=== PATIENT | female | born 1985 | race Caucasian/White ===

== ENCOUNTER → 2018-05-25 17:10 | Outpatient (CLI) | payer MEDICAID, SELFPAY ==
[2018-05-25 19:39] LABS: Chlamydia Trachomatis by PCR Negative (Negative); Neisserai gonorrhoeae by PCR Negative (Negative); Probe Check PASS; Sample Adequacy Control PASS; Specimen Processing Control PASS
== END ==
PROVIDERS: Visit Provider Nurse Practitioner Women's Health
DX: N89.8 Other specified noninflammatory disorders of vagina (principal)
CPT/HCPCS: 87070; 87077; 87205; 87491; 87591

== ENCOUNTER → 2018-06-06 15:57 | Outpatient (CLI) | payer MEDICAID, SELFPAY | PROVIDERS: Family Provider Family Medicine; PCP Family Medicine; Referring Provider Obstetrics & Gynecology; Visit Provider Obstetrics & Gynecology | DX: N76.0 Acute vaginitis (principal) | CPT/HCPCS: 87070; 87205 ==

== ENCOUNTER → 2019-08-08 12:25 | Outpatient (CLI) | payer SELFPAY ==
[2019-02-06 08:21] VITALS: BMI 31.4
[2019-08-08 14:32] LABS: Amphetamine Urine VISTA NEGATIVE (<1000 ng/mL); Barbiturate Urine VISTA NEGATIVE (< 200 ng/mL); Benzodiazepine Urine VISTA NEGATIVE (< 200 ng/mL); Cocaine Urine VISTA NEGATIVE (< 300 ng/mL); Ecstacy Urine VISTA NEGATIVE (< 500 ng/mL); Methadone Urine VISTA NEGATIVE (< 300 ng/mL); PCP Urine VISTA NEGATIVE (< 25 ng/mL); THC Urine VISTA NEGATIVE (< 50 ng/mL); Vista UDS pH Range 6
[2019-08-08 14:59] LABS: Rubella IgG 34.6 IU/mL
[2019-08-12 20:14] LABS: Mumps Antibody, IgM < 0.80 AU (0.00-0.79); Rubeola IgG Ab 53.7 AU/mL (Immune >16.4); V-Zoster Virus Acute IgM < 0.91 index (0.00-0.90)
== END ==
PROVIDERS: Family Provider Family Medicine; PCP Family Medicine; Referring Provider Family Medicine; Visit Provider Family Medicine
DX: Z00.00 Encounter for general adult medical examination without abnormal findings (principal)
CPT/HCPCS: 36415; 80307; 86735; 86762; 86765; 86787

== ENCOUNTER → 2019-10-24 | Outpatient (CLI) | payer MEDICAID, SELFPAY ==
[2019-10-24 14:07] VITALS: BMI 31.4
[2019-10-24 23:04] LABS: Chlamydia Trachomatis by PCR Negative (Negative); Neisserai gonorrhoeae by PCR Negative (Negative); Probe Check PASS; Sample Adequacy Control PASS; Specimen Processing Control PASS
== END | disposition home or self-care (01) ==
LOC: LABSPEC 16:14
PROVIDERS: PCP Family Medicine; Referring Provider Nurse Practitioner Women's Health; Visit Provider Nurse Practitioner Women's Health
DX: N89.8 Other specified noninflammatory disorders of vagina (principal)
CPT/HCPCS: 87070; 87205; 87491; 87591

== ENCOUNTER → 2020-02-26 | Outpatient (CLI) | payer MEDICAID, SELFPAY ==
[2020-02-26 09:33] VITALS: BMI 31.4
[2020-03-04 15:23] LABS: HPV APTIMA, High Risk Negative (Negative)
== END | disposition home or self-care (01) ==
LOC: LABSPEC 15:37
PROVIDERS: PCP Family Medicine; Referring Provider Nurse Practitioner Women's Health; Visit Provider Nurse Practitioner Women's Health
DX: Z12.4 Encounter for screening for malignant neoplasm of cervix (principal)
CPT/HCPCS: 87624; 88175; G0145

== ENCOUNTER → 2021-03-31 08:43 | Outpatient (CLI) | payer OTHER, MEDICAID, SELFPAY ==
[2021-03-31 08:12] VITALS: BMI 31.4
[2021-03-31 11:04] LABS: HIV - WCH Non-Reactive (Nonreactive); Hepatitis C Antibody Non-Reactive (Nonreactive); Syphilis Antibodies Non-reactive
[2021-04-01 12:33] LABS: HSV 1 IgG < 0.91 index (0.00-0.90); HSV 2 IgG < 0.91 index (0.00-0.90)
[2021-04-02 20:08] LABS: Chlamydia By Nucleic Acid AMP Negative (Negative)
[2021-04-02 20:21] LABS: Gonococcus By Nucleic Acid AMP Negative (Negative)
== END ==
PROVIDERS: PCP Family Medicine; Referring Provider Nurse Practitioner Women's Health; Visit Provider Nurse Practitioner Women's Health
DX: Z11.3 Encounter for screening for infections with a predominantly sexual mode of transmission (principal); Z20.2 Contact with and (suspected) exposure to infections with a predominantly sexual mode of transmission
CPT/HCPCS: 36415; 86695; 86696; 86703; 86780; 86803; 87491; 87591

== ENCOUNTER 2021-11-26 06:08 | Outpatient (CLI) | payer OTHER, MEDICAID, SELFPAY ==
[2021-11-26 07:28] LABS: Absolute Lymphocyte Count 2.32 X10^3/uL (0.83-4.51); Absolute Neutrophil Count 4.4 X10^3/uL (2.0-7.7); Basophil# 0.04 X10^3/uL; Basophil% 0.5 % (0-1); Eosinophil# 0.14 X10^3/uL; Eosinophils% 1.9 % (0-5); Hematocrit 42.4 % (37-47); Hemoglobin 14.8 g/dL (12.0-15.0); Lymphocyte # 2.32 X10^3/ul (0.83-4.51); Lymphocyte % 31.1 % (19-41); Mean Corp Hgb Conc 34.9 g/dL (32-36); Mean Corpuscular Hgb 32.2 pg (27.0-32.0); Mean Corpuscular Volume 92.2 fL (81-99); Mean Platelet Vol. 10.7 fl (6.2-12.0); Monocyte# 0.48 X10^3/uL; Monocyte% 6.4 % (0-10); NRBC Flagged by Analyzer 0 % (0-5); Neutrophil # 4.44 X10^3/uL (2.7-7.7); Neutrophil % 59.7 % (47-70); Platelet Count 259 K/mm3 (150-450); RBC Distribution Width CV 12.6 % (11.6-14.6); RBC Distribution Width SD 43.2 fl (35.1-43.9); White Blood Count 7.5 K/mm3 (4.4-11.0)
[2021-11-26 07:59] LABS: ALB/GLOB Ratio 0.9 RATIO (0.9-2.4); AST(SGOT) 11 U/L (15-37); Alanine Aminotransfer ALT/SGPT 17 U/L (13-56); Albumin, Serum 3.5 g/dL (3.2-5.0); Alkaline Phosphatase 41 U/L (45-117); Anion Gap 6 (5-15); BUN 12 mg/dL (7-18); BUN/Creat Ratio 14.4 RATIO (10-20); Calcium,Total 8.8 mg/dL (8.5-10.1); Chloride 106 mmol/L (98-107); Creatinine, Serum 0.84 mg/dL (0.55-1.02); EST Glomerular Filtration Rate 82 mL/min (>60); Est Glom Filt Rate - Afr Amer 99 mL/min (>60); Globulin 3.7 g/dL (2.2-4.2); Glucose 103 mg/dL (74-106); Potassium 4.1 mmol/L (3.5-5.1); Protein, Total 7.2 g/dL (6.4-8.2); Sodium Level 137 mmol/L (136-145)
== END 2021-11-26 23:59 | disposition home or self-care (01) ==
PROVIDERS: PCP Family Medicine; Referring Provider Family Medicine; Visit Provider Family Medicine
DX: R10.11 Right upper quadrant pain (principal)
CPT/HCPCS: 36415; 80053; 85025

== ENCOUNTER 2021-11-29 07:41 | Outpatient (CLI) | payer OTHER, MEDICAID, SELFPAY ==
--- NOTE | 2021-11-29 07:45 | US_ITS ---
STUDY: ABDOMINAL ULTRASOUND - RIGHT UPPER QUADRANT REASON FOR VISIT: Female, 36 years old RUQ DISCOMFORT TECHNIQUE: Ultrasound evaluation of the right upper quadrant was performed with real-time and static yoo-scale imaging. TECHNICAL QUALITY: Adequate. COMPARISON: None. FINDINGS: Liver: The liver measures 17.1 cm. There is normal echogenicity of the liver. The bile ducts are within normal limits. There is hepatic color flow. The direction of portal flow is hepatopetal. There is no demonstrated mass lesion. Gallbladder: Normal distended gallbladder. The gallbladder wall measures 2.5 mm. There is a negative sonographic Foster''s sign. There is no pericholecystic fluid. There are no gallstones. Common Bile Duct (C.B.D.): The common bile duct measures 2.8 mm. Pancreas: Normal size of the head, body and tail of the pancreas. There is normal echogenicity of the pancreas. There is no demonstrated pancreatic mass or cyst. Right Kidney: Normal size of the right kidney. The right kidney measures 11.9 cm x 6.3 cm x 5.9 cm. Normal renal cortex. The right cortex measures 1.8 cm. There is no demonstrated renal mass or cyst. There is no right hydronephrosis. US/Abdomen Limited IMPRESSION: Normal right upper quadrant ultrasound examination. Electronically Signed: Kalin Porter MD at 15:29 EDT ,
== END 2021-11-29 23:59 | disposition home or self-care (01) ==
LOC: US 07:43
PROVIDERS: PCP Family Medicine; Referring Provider Family Medicine; Visit Provider Family Medicine
DX: R10.11 Right upper quadrant pain (principal)
CPT/HCPCS: 76705

== ENCOUNTER → 2022-02-08 | Outpatient (CLI) | payer OTHER, MEDICAID, SELFPAY ==
[2022-02-08 07:35] LABS: Erythrocyte Sedimentation Rate < 1 mm/hr (0-30)
[2022-02-08 08:02] LABS: CRP 6.94 mg/L (0.0-3.0); Cholesterol 177 mg/dL (200); High Density Lipoprotein 54 mg/dL; Rheumatoid Factor < 10.0 IU/mL (<15); Thyroid Stim Hormone (TSH) 2.78 uIU/mL (0.358-3.74); Triglycerides 165 mg/dL; Very Low Density Lipoprotein 33 mg/dL (5-40)
[2022-02-08 08:45] LABS: Vitamin B12 355 pg/mL (211-911)
[2022-02-10 14:10] LABS: Anti-Centromere B Ab <0.2 AI (0.0-0.9); Anti-Chromatin <0.2 AI (0.0-0.9); Anti-Jo <0.2 AI (0.0-0.9); Anti-Scleroderma-70 AB <0.2 AI (0.0-0.9); RNP Ab <0.2 AI (0.0-0.9); SJOGREN'S Anti-SS-A test < 0.2 AI (0.0-0.9); SJOGREN'S Anti-SS-B test < 0.2 AI (0.0-0.9); Smith Ab <0.2 AI (0.0-0.9)
[2022-02-11 17:14] LABS: Anti-dsDNA Ab 9 IU/mL (0-9); Vitamin D 1,25-Dihydroxy 68.9 pg/mL (24.8-81.5)
[2022-02-15 01:07] LABS: Immunoglobulin A 232 mg/dL (87-352); Immunoglobulin G 838 mg/dL (586-1602); Immunoglobulin M 36 mg/dL (26-217)
[2022-02-15 15:27] LABS: Immunoglobulin E 27 IU/mL (6-495)
== END | disposition home or self-care (01) ==
LOC: LAB 06:04
PROVIDERS: PCP Family Medicine; Referring Provider Nurse Practitioner Adult Health; Visit Provider Nurse Practitioner Adult Health
DX: M25.551 Pain in right hip (principal); M25.552 Pain in left hip; M25.561 Pain in right knee; M25.562 Pain in left knee; G89.29 Other chronic pain
CPT/HCPCS: 36415; 80061; 82607; 82652; 82784; 82785; 84443; 85652; 86140; 86225; 86235; 86431

== ENCOUNTER → 2022-02-14 | Outpatient (CLI) | payer OTHER, MEDICAID, SELFPAY ==
--- NOTE | 2022-02-14 06:36 | MRI_ITS ---
EXAM: MR HEAD WITHOUT AND WITH INTRAVENOUS CONTRAST CLINICAL INDICATION: MIGRAINE HEADACHE TECHNIQUE: Multiplanar and multisequence MR images of the brain were obtained without and with intravenous contrast. This report was created using [employer] report generation technology. CONTRAST: 15ML IV DOTAREM COMPARISON: None. FINDINGS: BRAIN AND EXTRA-AXIAL SPACES: Unremarkable. No intra- or extra-axial hemorrhage. No evidence of acute infarct. No intracranial mass or mass effect. There is preservation of the yoo/white matter interface. Posterior fossa structures are unremarkable. Normal ventricles and cisterns. No abnormal enhancing lesions intraaxially and extra-axially. SELLA: Unremarkable. Normal sella turcica, pituitary gland, infundibular stalk, optic chiasm and hypothalamus. AUDITORY SYSTEM: Unremarkable. The internal auditory canals are patent. BONES/JOINTS: Unremarkable. No discrete lytic or blastic abnormalities. SINUSES: Unremarkable as visualized. Clear. MASTOID AIR CELLS: Unremarkable as visualized. Clear. ORBITS: Unremarkable as visualized. Both globes, extraocular muscles, optic nerves and retrobulbar fat appear unremarkable. VASCULATURE: Unremarkable as visualized. Normal flow voids in the major intracranial circulation. MRI/Brain W/WO Contrast IMPRESSION: Normal MRI brain without and with intravenous contrast. Electronically Signed: Aquilino Christensen MD at 10:47 EDT ,
== END | disposition home or self-care (01) ==
LOC: MRI 06:30
PROVIDERS: PCP Family Medicine; Referring Provider Psychiatry & Neurology Neurology; Visit Provider Psychiatry & Neurology Neurology
DX: G43.909 Migraine, unspecified, not intractable, without status migrainosus (principal)
CPT/HCPCS: 70553; A9575

== ENCOUNTER → 2022-04-20 | Outpatient (CLI) | payer OTHER, MEDICAID, SELFPAY | END | disposition home or self-care (01) | LOC: LABSPEC 14:22 | PROVIDERS: PCP Family Medicine; Referring Provider Nurse Practitioner Women's Health; Visit Provider Nurse Practitioner Women's Health | DX: Z11.3 Encounter for screening for infections with a predominantly sexual mode of transmission (principal); N76.0 Acute vaginitis | CPT/HCPCS: 87070; 87205; 87491; 87591 ==

== ENCOUNTER 2022-05-24 10:20 | Day surgery (SDC) | payer OTHER, MEDICAID, SELFPAY ==
[2022-05-19 09:42] LABS: Hematocrit 41.4 % (37-47); Hemoglobin 13.8 g/dL (12.0-15.0); Mean Corp Hgb Conc 33.3 g/dL (32-36); Mean Corpuscular Hgb 31.3 pg (27.0-32.0); Mean Corpuscular Volume 93.9 fL (81-99); Mean Platelet Vol. 11.1 fl (6.2-12.0); Platelet Count 239 K/mm3 (150-450); RBC Distribution Width CV 12.5 % (11.6-14.6); RBC Distribution Width SD 43.7 fl (35.1-43.9); Red Blood Count 4.41 M/mm3 (4.2-5.4)
[2022-05-24] VITALS (8 sets, daily range): BP systolic 107–138; BP diastolic 63–82; PULSE 58–75; RESP 14–18; TEMP 36.1–37.2; O2SAT 100; BMI 30.4
--- NOTE | 2022-05-24 06:22 | HP.PCM_ITS ---
History and Physical [facility] [place] [place] [address] OFFICE VISIT Date of Service:? 05/17/22 MR#: [id number] Acct: [id number] Name:QING RANGEL Rep #: [id number] : 1985 ? ? Provider: Dr. Anyi Coughlin MD Age/Sex:? 37/F ? ? Location: [facility] Status: Signed Intake Vital Signs ? 05/17/2216:15 05/17/2216:15 Height 5 ft 4 in 5 ft 4 in Weight: 178 lb 6 oz ? BMI 30.6 ? BP 141/92 H ? Intake Visit Reasons:?BS Benzene Still Utility Operator Required: No Is patient in pain?: No Allergies Sulfa (Sulfonamide Antibiotics) Allergy (Verified 05/17/22 16:15) Unknown Medications cetirizine 10 mg capsule (Zyrtec) 10 mg PO DAILY 05/31/20 [History Confirmed 05/17/22] rimegepant 75 mg disintegrating tablet (Nurtec ODT) 75 mg PO DAILY PRN migraine headache #8 tabs 01/24/22 [Rx Confirmed 05/17/22] ondansetron HCl 4 mg tablet 4 mg PO Q8H PRN nausea and vomiting #14 tabs 01/27/22 [Rx Confirmed 05/17/22] norethindrone acetate 1.5 mg-ethinyl estradiol 30 mcg tablet (Loestrin) 1 tab PO DAILY #63 tabs 04/20/22 [Rx Confirmed 05/17/22] Post menopausal: No Patient : No : No PFSH Medical History? Alcohol use Former smoker Heartburn Knee pain Seasonal allergies Surgical History? History of tonsillectomy Vaginal cyst Family History? Father Hypertension Rheumatic heart disease ?? ? with valve replacement DiabetesMother Abnormal uterine bleeding (AUB) AsthmaUncle Diabetes Social History?(Reviewed 05/17/22 @ 16:15 by Fernanda Eric adopted:? No household members:? family housing:? house number of children:? 2 current occupational status:? 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 No pets and animals:? Yes history of recent travel:? No Smoking Status:? Former smoker second hand exposure:? No alcohol intake:? current alcohol intake frequency: a few times a month substance use type:? does not use caffeine:? Yes what type of physical activity do you participate in:? yoga frequency:? 3-4 times per week seatbelt use:? always do you feel safe at home:? Yes additional social history:? [employer] [facility] HPI BS Details: QING GASTON is a 37 year old who presents for preop consult for sterilization. History ? ? ? 2 ? Elective abortions ? Hx Para ? ? ? 2 ? Spontaneous abortions ? Hx # Term Pregnancies ? Ectopic pregnancies ? Hx # Pregnancies ? Multiple births ? # of living children ? ? ? 2 Past Pregnancies Del. Date Name GA/Weeks Outcome Route Bth Weight Gen Labor Lgth Anesthesia Del Locatn Provider FOB Unknown 2005- Reggie 40 live - full term NS VD ? Male ? Unknown 2009- Ajith 37 live - full term NS VD ? Female ? Delivery Date:?? Last Updated by: Leanna Cornejo ? ? ? low lying placenta ROS Const Constitutional: Denies fatigue, weight gain or weight loss ENT ENT: Reports system reviewed and no additional complaints, except as documented Cardio Card: Denies chest pain Resp Resp: Denies cough or dyspnea on exertion GI GI: Denies abdominal pain, bloating, change in stool character, constipation or vomiting : Reports as per HPI; Denies difficulty voiding, nipple discharge, pelvic pain, urinary frequency, urinary incontinence, urinary urgency, vaginal discharge or vaginal pruritus Musc Musc: Denies arthralgias, back pain or muscle weakness Skin Skin/Breast: Denies alopecia, change in hair, dry skin, breast mass, breast pain, breast skin changes or nipple discharge Neuro Neuro: Reports system reviewed and no additional complaints, except as documented Psych Psych: Reports system reviewed and no additional complaints, except as documented Endo Endo: Denies cold intolerance, excessive sweating, heat intolerance or polydipsia Juan Pablo/Lymph Hematologic/Lymphatic: Denies easy bleeding, Denies easy bruising and Denies lymphadenopathy Exam Const General: cooperative, healthy appearing, no acute distress and well developed Orientation: alert, oriented to person and oriented to place HENDC Head: normal to inspection Ears: hearing grossly normal bilaterally and external ears normal Nose: external nose normal and nares normal Face and sinus: normal facial exam Neck Neck: normal visual inspection Thyroid: thyroid normal Lymphatic: no lymphadenopathy noted Chest Chest palpation & inspection: normal inspection of the chest Resp Effort & Inspection: normal respiratory effort Auscultation: clear to auscultation bilaterally Cardio Rate: regular rate Rhythm: regular rhythm Heart Sounds: S1 normal and S2 normal GI Inspection: normal to inspection and non-distended Palpation: soft, no masses and nontender Rectal Exam: deferred Musc Other: gross motor intact no deficits, full bilateral strength Skin General: no rashes or lesions noted Neuro General: patient alert and patient oriented x3 Motor: muscle tone normal throughout Extrem General: normal to inspection and no pedal edema Psych Appearance: grossly normal Mental Status: mental status grossly normal Affect: normal affect Speech and Movement: speech and movement normal Coding Level of Care Code No Charge Diagnoses Sterilization? Z30.2 Assessment and Plan Assessment and Plan (1) Sterilization: ?Status:?Acute ?Comment: lap BS ?Plan: After discussing the patient's diagnosis and treatment plan options, patient wishes to proceed with surgical management.? I have discussed with the patient the risks, benefits, and alternatives of the procedure which include but are not limited to risks of anesthesia, bleeding, infection, possible damage to bowel, bladder, or surrounding vasculature which could lead to additional surgery to evaluate any complications.? Patient agrees to procedure and wishes to proceed.? ACOG/uptodate references given for additional information regarding procedure.? UPDATE- I have seen the patient and performed any clinically relevant updates to the history and physical exam. Anyi Coughlin MD
[2022-05-24 10:44] LABS: Internal QC Validated? YES +Cl - CLEAR BKGD; Pregnancy, Urine Negative Negative
[2022-05-24] MEDS: Lactated Ringers 1,000 ML 125 ML IV (10:44)
--- NOTE | 2022-05-24 11:14 | DCINST_ITS ---
Discharge Instructions Follow Up Care Test Results: Test results from this visit will be discussed in further detail at your follow- up appointment, if applicable. Discharge Plan Admission Attending Provider: Anyi Coughlin Primary Care Provider: Milan Pena Consulting Providers: Mayito Meléndez Discharge Orders/Prescriptions Prescriptions: No Action Zyrtec 10 mg capsule 10 mg PO DAILY Nurtec ODT 75 mg tablet,disintegrating 75 mg PO DAILY PRN (Reason: migraine headache) Qty: 8 6RF norethindrone ac-eth estradiol [Loestrin 1.5/ (21)] 1.5-30 mg-mcg tablet 1 tab PO DAILY Qty: 63 6RF Rx Instructions: take continuously ondansetron HCl 4 mg tablet 4 mg PO Q8H PRN (Reason: nausea and vomiting) Qty: 14 0RF Referrals / Follow Up: Milan Pena MD [Primary Care Provider] - Disposition Disposition (needs filled in before D/C Order can be placed): Home, Self Care
--- NOTE | 2022-05-24 11:14 | PCM.OPRPT ---
Problems Associated Problem List Diagnoses (1) Sterilization: Report of Operation Pre-Operative Diagnosis: see problem list Post-Operative Diagnosis: same Surgery/Procedure Performed:: laparoscopic bilateral salpingectomy Description of Surgical Findings:: nl uterus tubes ovaries Type of Anesthesia: General and Local Specimen's removed: tubes Drains: none Estimated Blood Loss (mL): 50 Fluids Replaced: crystalloid Description of Procedure: Patient was taken in the operating room and was placed under general anesthesia was prepped and draped in normal sterile fashion in the dorsal lithotomy position. Bladder was drained of clear urine and SCDs were on preoperatively. Uterus was sounded and a uterine manipulator was placed after dilating. Attention was then paid to the abdominal portion of the procedure and the umbilicus was elevated with towel clamps and injected with Marcaine and after a 5 mm incision was made and the Veress needle was entered into the abdomen confirmed to be intra-abdominal with a low opening pressure of less than 5 mmHg. Abdomen was insufflated with CO2 gas and a 5 mm optical trocar was placed under direct visualization. A 5 mm port suprapubically was placed under direct visualization. Uterus was well visualized and bilateral fallopian tubes identified and bilateral tubes were elevated and transecting across the mesosalpinx and the attachment to the uterine corpus bilaterally the tubes were removed without complication. Excellent hemostasis was noted. Fallopian tubes were removed through the lower port site without complication. Liver and upper abdomen were visualized notably within normal limits and no other gross abnormalities were seen in the abdomen. All instruments removed from the abdomen after gas was desufflated. Port sites were closed with 3-0 Monocryl Steri's and op sites were applied. All instruments removed from the vagina and patient was awoken and taken recovery in stable condition. Grafts/Implants Used: none Complications none Admit VTE Documentation VTE Present on Admission: No VTE Mechan Device Prophylaxis: SCD's Multi Select Codes Urinary/Genital Urinary/Genital CPT Codes: 24361 Laproscopic BS/O
--- NOTE | 2022-05-24 11:17 | DCINST_ITS ---
Discharge Instructions Diet Discharge Diet: No restrictions Activity Discharge Activity: Return to Normal Activity, May Drive (when pain free) and May Shower May resume sexual activity in: 1 week Weight Bearing Status: Full weight bearing Lifting Restrictions: 30 lbs for 2 weeks Dressing / Incision Call your doctor if your incision/area has: Continuous Slow Oozing, Sudden Increased Bleeding, Increased Pain/ Swelling, Increased Redness and Foul Smelling Discharge Call your doctor if you observe: Fever of 101 or Higher, Using more than 1 pad per hour, Shortness of breath, Chest pain and Uncontrolled pain Suture Line Care: Avoid Pulling/Pushing and Avoid Pinching/Bending Remove Dressing in: 1 week (if present) Cleanse incision/area with: Soap & Water and Keep Dressing Clean & Dry Follow Up Care Please Follow Up With: Anyi Coughlin MD When: Call to make an appointment with your doctor for a postop visit in 2 weeks Test Results: Test results from this visit will be discussed in further detail at your follow- up appointment, if applicable. Discharge Plan Admission Attending Provider: Anyi Coughlin Primary Care Provider: Milan Pena Consulting Providers: Mayito Meléndez Discharge Orders/Prescriptions Prescriptions: New naproxen 250 mg tablet 250 - 500 mg PO Q8H PRN PRN (Reason: MILD PAIN) Qty: 30 1RF oxycodone-acetaminophen [Percocet] 5-325 mg tablet 1 tab PO Q6H PRN (Reason: pain) 7 Days Qty: 20 0RF Continued Zyrtec 10 mg capsule 10 mg PO DAILY Nurtec ODT 75 mg tablet,disintegrating 75 mg PO DAILY PRN (Reason: migraine headache) Qty: 8 6RF ondansetron HCl 4 mg tablet 4 mg PO Q8H PRN (Reason: nausea and vomiting) Qty: 14 0RF Discontinued norethindrone ac-eth estradiol [Loestrin 1.5 (21)] 1.5-30 mg-mcg tablet 1 tab PO DAILY Qty: 63 6RF Rx Instructions: take continuously Referrals / Follow Up: Milan Pena MD [Primary Care Provider] - Disposition Disposition (needs filled in before D/C Order can be placed): Home, Self Care
[2022-05-24] MEDS: Lubricating Jelly 60 GM Tube 30 GM (11:21)
--- NOTE | 2022-05-24 11:55 | FALS_PTH ---
PATIENT: QING GAONA LOC: [facility] U#:[id number] AGE/SX: 37/F ROOM: RE05/24/[address]: Dr. Anyi Coughlin MD : 1985 BED: DIS: 05/24/2022 SPEC #: [id number] RECD: 05/25/22 08:26 STATUS: WALKER RE #: [id number] BLAIRE: 05/24/22 11:[address]: Anyi Coughlin DEPT: SURGICAL PATHOLOGY RECD BY: Jorge Ordonez ENTERED: 05/25/22 10:19 SP TYPE: FALL TUBES OTHR DR: MD Dr. Milan Villarreal MD Tissues: Fallopian tube Procedures: Surgery Specimen Level II HEADER OPERATION: Laparoscopic salpingectomy PRE-OP DIAGNOSIS: Sterilization TISSUE SUBMITTED: Bilateral fallopian tubes MICROSCOPIC DIAGNOSIS Bilateral fallopian tubes, salpingectomy: Bilateral fallopian tubes, no pathologic diagnosis. SJ:robinson 05/26/2022 MICROSCOPIC DESCRIPTION Slides are reviewed. GROSS DESCRIPTION Received in fixative is one container labeled with the patient's name and designated bilateral fallopian tubes. The specimen consists of two fallopian tubes with an average length of 5.5 cm and has an average diameter of 0.7 cm. Both fallopian tubes have normal fimbriated ends. No mass lesions are identified. Tufting Creeler sections are submitted in two cassettes as follows: 1 - one fallopian tube, 2??the other fallopian tube. / AM:robinson 05/25/2022 TC:4 CPT: 47390 x2
== END 2022-05-24 14:12 | disposition home or self-care (01) ==
LOC: SDC 10:22 → AC 10:23
PROVIDERS: Anesthesiology; PCP Family Medicine; Referring Provider Obstetrics & Gynecology; Visit Provider Obstetrics & Gynecology
PROC: (CPT 58661; principal; 2022-05-24 11:40)
DX: Z30.2 Encounter for sterilization (principal); Z87.891 Personal history of nicotine dependence
CPT/HCPCS: 58661; 00840; 81025; 85027; 86850; 86900; 86901; 88302; J7120; J2405

== ENCOUNTER → 2023-04-24 | Outpatient (CLI) | payer OTHER, SELFPAY ==
[2023-04-26 21:07] LABS: Chlamydia By Nucleic Acid AMP Negative (Negative); Gonococcus By Nucleic Acid AMP Negative (Negative)
== END | disposition home or self-care (01) ==
LOC: LABSPEC 13:48
PROVIDERS: PCP Family Medicine; Referring Provider Nurse Practitioner Women's Health; Visit Provider Nurse Practitioner Women's Health
DX: Z11.3 Encounter for screening for infections with a predominantly sexual mode of transmission (principal)
CPT/HCPCS: 87491; 87591

== ENCOUNTER → 2023-05-12 | Outpatient (CLI) | payer OTHER, SELFPAY ==
--- NOTE | 2023-05-12 10:57 | RAD_ITS ---
EXAM: XR RIGHT KNEE COMPLETE, 4 OR MORE VIEWS CLINICAL INDICATION: chronic knee pain TECHNIQUE: Four or more views of the right knee. COMPARISON: No relevant prior studies available. FINDINGS: BONES/JOINTS: No significant abnormality. No acute fracture. No subluxation. Normal alignment. Preservation of the joint space. No sclerotic or destructive changes observed. SOFT TISSUES: No significant abnormality. No soft tissue swelling or gas. No radiopaque foreign body. RAD/Knee 4 or More Views IMPRESSION: Negative right knee x-rays. Electronically Signed: Ned Garcia DO at 20:22 EDT ,
== END | disposition home or self-care (01) ==
PROVIDERS: PCP Family Medicine; Referring Provider Family Medicine; Visit Provider Family Medicine
DX: M25.561 Pain in right knee (principal)
CPT/HCPCS: 73564

== ENCOUNTER → 2023-06-08 | Outpatient (CLI) | payer OTHER, SELFPAY ==
--- NOTE | 2023-06-08 06:39 | MRI_ITS ---
STUDY: MRI RIGHT KNEE REASON FOR EXAM: Female, 38 years old. Right knee pain for several years. Most pain posterior and medial. TECHNIQUE: Standardized fat and water weighted pulse sequences were obtained in all 3 orthogonal planes. COMPARISON: Right knee radiographs dated 05/12/2023. FINDINGS: There is mild intrasubstance degeneration within the posterior horn of the medial meniscus without a discrete tear. Normal hyaline cartilage of the medial femorotibial compartment. Normal medial femoral condyle and tibial plateau. Normal medial collateral ligamentous complex (MCL). Normal distal semimembranosus, gracilis and semitendinosus tendons. Normal lateral meniscus. Normal hyaline cartilage of the lateral femorotibial compartment. Normal lateral femoral condyle and tibial plateau. Normal proximal tibiofibular articulation. Normal lateral collateral (fibular) ligament. Normal popliteus tendon. Normal biceps femoris tendon. Normal anterior cruciate ligament (ACL). Normal posterior cruciate ligament (PCL). Normal congruent patellofemoral articulation. Normal hyaline cartilage of the patellofemoral compartment. Normal medial and lateral patellar retinaculum. Normal quadriceps tendon. Normal patellar tendon. Normal Hoffa''s fat pad. There is a tiny joint effusion. There is no popliteal cyst. The soft tissues are unremarkable. There is no acute fracture. MRI/Lower Ext Joint Only (Routine) IMPRESSION: Tiny joint effusion. No discrete meniscal tear or acute ligamentous injury. Electronically Signed: Koby Cueto MD at 8:16 EDT ,
== END | disposition home or self-care (01) ==
LOC: MRI 06:29
PROVIDERS: PCP Family Medicine; Referring Provider Family Medicine; Visit Provider Family Medicine
DX: M25.561 Pain in right knee (principal)
CPT/HCPCS: 73721

== ENCOUNTER 2023-08-25 09:30 | Outpatient (RCR) | payer OTHER, SELFPAY ==
--- NOTE | 2023-07-24 18:08 | HP.PTEVAL ---
Patient's Visit Information Visit Information Visit Information: QING GASTON is a 38 year old F referred to Physical Therapy by NISA Pagan with a diagnosis of R knee patellofemoral pain. Date of Evaluation: 07/24/23 Physical Therapist: Foreign Jackman, PT, ATC Visit Plan Frequency: 2-3x /Week Duration: 4-6 Weeks Plan: R LE stretching and strengthening (SLR with VMO), core strengthening, and HEP Subjective Subjective: Pt reports she injured her R knee in [id number] and notes her R knee has not been the same since. Pt reports her pain because the worst it had been over the summer this year. Pt was running a lot and notes that the pain would become severe. Pt reports she had an x-ray and an MRI on her R knee which she was told was normal. Pt reports no tingling or numbness except for when she wears her knee brace. Pt reports she has a lot of stairs at work and has no difficulty with descending or ascending them. No sleep difficulty secondary to p0ain. Pt reports pain is located on the medial aspect of her R knee, and when it is bad she describes it as sharp, twitching, aching. No PMHx of R knee trauma or injury prior to this episode. 1/10 pain while at rest, 7/10 pain at worst. Pain R knee pain: Pain Intensity (Out of 10): 1 Pain Intensity Range: 7 Objective Objective: Neuro: B LE sensation is WNL to light touch. Palpation: No obvious deformity is present at this time. No crepitus with AROM ROM: L knee 0- 5-140; R knee 0-5-140 degrees MMT: L knee flex= 37, ext= 44 #F; R knee flex= 38, ext= 42 #F SPecial tests: Pos McConnels sign, pos 90/90 (40 degree lag) Balance/Special Test Scores Lower Extremity Functional Score: 66 Goals Goal 1:: Decrease R knee pain x 50% to aid with sleep Goal Time Frame: 4-6 Weeks Goal 2:: Increase R HS flexibility x 15 degrees to aid with decreasing R knee pain Goal Time Frame: 4-6 Weeks Goal 3:: I with HEP Goal Time Frame: 4-6 Weeks Rehabilitation Potential Physical Therapy Diagnosis: Pt has R knee pain, weakness, and limited ability to exercise secondary to PFS Rehabilitation Potential: Good Anticipated Interventions Patient/Client Instruction: Educate patient on: Condition and Plan of Care For the Purpose of:: To improve self management Therapeutic Exercise to Include: Strength training, Endurance training, Balance training, Flexibilty training and Dynamic Lumbar Stabilization For the Purpose of:: To decrease pain, To increase ROM and To improve muscle performance and motor function Cryotherapy (ice pack, ice massage): Yes For the Purpose of:: To decrease pain Text: Thank you for the opportunity to evaluate your patient. For Medicare and Medicare HMO plans, please review the plan of care and approve it. It will need to be FAXED BACK to us at [phone] for Medicare purposes. For Medicare only, by signing this I certify the plan of care. Please let me know if there are questions or concerns regarding this plan of care. Physician Signature: Date:
--- NOTE | 2023-08-25 10:05 | HP.PTDCSUM ---
Discharge Summary D/C summary: It has been my pleasure to treat QING GASTON referred by NISA Pagan, with the diagnosis of R knee patellofemoral pain for a total of 9 visit(s). Discharge Date: Please see the following information for a summary of their discharge status. Subjective Subjective: I dont have any pain right now Pain R knee pain: Pain Intensity (Out of 10): 0 Overall Improvement % Improvement: 96 Objective Objective/Function: LBP ranges from 0-1/10 HS flexibility is now WNL Pt is I with HEP Rx goals achieved Goals Goal 1:: Decrease R knee pain x 50% to aid with sleep Goal Progress: Goal Met Goal 2:: Increase R HS flexibility x 15 degrees to aid with decreasing R knee pain Goal Progress: Goal Met Goal 3:: I with HEP Goal Progress: Goal Met Plan Plan: Discharge to HEP D/C Information d/c sentence: If there are questions or concerns regarding this patient's physical therapy, please feel free to call me at [phone]. Thank you for the referral of this patient. Sincerely, Foreign Jackman, PT, ATC Balance/Gait/Functional tests Balance/Special Test Scores Lower Extremity Functional Score: 80 Improvement % Improvement: 96
== END 2023-08-25 19:00 | disposition home or self-care (01) ==
LOC: PT 09:30
PROVIDERS: PCP Family Medicine; Referring Provider Physician Assistant Surgical; Visit Provider Physician Assistant Surgical
DX: M22.2X1 Patellofemoral disorders, right knee (principal); M25.561 Pain in right knee
CPT/HCPCS: 97110; 97161; 97164

== ENCOUNTER → 2023-09-07 | Outpatient (CLI) | payer OTHER, SELFPAY ==
[2023-09-07 09:10] LABS: Cholesterol 223 mg/dL (200); High Density Lipoprotein 90 mg/dL; Triglycerides 186 mg/dL; Very Low Density Lipoprotein 37 mg/dL (5-40)
[2023-09-07 09:21] LABS: Hepatitis B Surface Antibody Non-Reactive; Rubella IgG Reactive (Nonreactive)
[2023-09-11 15:08] LABS: B. pertussis IgG 2.15 index (0.00-0.94); QNTFERON TB Mitogen Value > 10.00 IU/mL (.); QNTFERON TB Nil Value 0.01 IU/mL (.); QNTFERON TB1+ Ag Value 0.05 IU/mL (.); QNTFERON TB2+ Ag Value 0.04 IU/mL (.); QNTIFERON TB Positive Criteria Negative (Negative); Rubeola IgG Ab 58.2 AU/mL (Immune >16.4); V-Zoster IgG (Immunity) 711 index (Immune >165)
== END | disposition home or self-care (01) ==
PROVIDERS: PCP Family Medicine; Referring Provider Internal Medicine Gastroenterology; Visit Provider Internal Medicine Gastroenterology
DX: Z00.00 Encounter for general adult medical examination without abnormal findings (principal)
CPT/HCPCS: 36415; 80061; 86480; 86615; 86706; 86735; 86762; 86765; 86787

== ENCOUNTER → 2023-10-30 | Outpatient (CLI) | payer OTHER, SELFPAY ==
--- NOTE | 2023-10-30 15:30 | RAD_ITS ---
EXAM: XR CHEST, 2 VIEWS CLINICAL INDICATION: cough TECHNIQUE: Frontal and lateral views of the chest. COMPARISON: No relevant prior studies available. FINDINGS: LUNGS AND PLEURAL SPACES: Unremarkable. No consolidation or edema. No pneumothorax. No effusion. HEART: Unremarkable. Cardiac silhouette not enlarged. MEDIASTINUM: Central airways and mediastinal contour are unremarkable. BONES/JOINTS: Unremarkable. No acute fracture. SOFT TISSUES: Unremarkable. RAD/Chest PA and Lateral IMPRESSION: No radiographic evidence of acute cardiopulmonary disease. Electronically Signed: Naveed Moon MD at 0:06 EST ,
--- OUTSIDE RECORDS SUMMARY | 2023-10-30 23:38 | XMS RPT_ITS | CCD ---
Author Name Unknown Address [address] [place] [address] Organization [facility] Care Team Providers Care Manager Respiratory Name Role Phone Madyson GUARDADO, Anyi Zuluaga Unavailable [phone] [facility] PE[facility] ([facility]) Unavailable Unavai lable Allergies Allergy Classification Reported Allergen(s) Allergy Type Date of Onset Reaction(s) Facility (2 sources) sulfamethoxazole / trimethoprim Drug Allergy 07-25-20 [facility] (1 source) Seasonal allergy; Translations: [SEASONAL ALLERGIES] Propensity to adverse reactions (disorder) [facility] Sulfonamides (Antibiotic); Translations: [SULFA (SULFONAMIDE ANTIBIOTICS)] Propensity to adverse reactions to drug (disorder) 01-20-20 06 [facility] Repository Medications Completed/Discontinued Medications Medication Drug Class(es) Dates Sig (Normalized) Sig (Original) ALLERGY INJECTIONS (2 sources) Start: 07-25-2017 ALLERGY INJECTIONS ALLERGY INJECTIONS Anyi Coughlin MD DROSPIRENONE-ETHINY L ESTRADIOL (2 sources) Progestin, Estrogen Start: 07-25-2017 GIANVI 3-0.02 MG TABS take only active pills discard inactive pills start new pack immediately DROSPIRENONE-ETHINY L ESTRADIOL [id number] Anyi Coughlin MD loratadine 10 mg oral tablet (2 sources) Start: 07-25-2017 CLARITIN 10 MG TABS LORATADINE [id number] Anyi Coughlin MD Problems Active Problems Problem Classification Problem Date Documented Date Episodic/Chronic Unclassified (2 sources) Gynecologic examination ; Translations: [Encounter for gynecological examination (general) (routine) without abnormal findings] Onset: 07-25-2017 07-25-2017 Unclassified (1 source) Unknown / UNK(Unknown) Onset: 05-12-2017 Past or Other Problems Problem Classification Problem Date Documented Da te Episodic/Chronic Contraceptive and procreative management (2 sources) Encounter for sterilization; Translations: [Encounter for sterilization] Onset: 07-25-2017 07-25-2017 Episodic Results Test Name Value Interpretation Reference Range Facil ity Vital Signs Date Time Vital Sign Value Performing Clinician Faci lity 07-25-2017 09:35-0500 BMI (Body Mass Index) 31.58 kg/m2 Anyi Coughlin MD [facility] 07-25-2017 09:35-0500 BP Diastolic 82 mm[Hg] Anyi Coughlin MD [facility] 07-25-2017 09:35-0500 BP Systolic 125 mm[Hg] Anyi Coughlin MD [facility] 07-25-2017 09:35-0500 Height 162.56 cm Anyi Coughlin MD [facility] 07-25-2017 09:35-0500 Weight 83.46 kg Anyi Coughiln MD [facility] Encounters Encounter Date Encounter Type Care Provider Facility Start: 05-12-2017 End: 05-15-2017 Ambulatory [facility] [place] Plan of Treatment Date Care Activity Detail Author Start: 07-25-2017 End: 07-25-[address] [facility] Summary Purpose Family History No Family History Records FoundNo Family History Records Found Advance Directives No Advanced Directives Records FoundNo Advanced Directives Records Found Additional Source Comments INFORMATION SOURCE (unrecogn ized section and content) DATE CREATED AUTHOR AUTHOR'S TOAN ATION 08/05/[address] [facility] FOR RECORDS PERTAINING TO PATIENTS WHO ARE OR HAVE BEEN ENROLLED IN A CHEMICAL DEPENDENCY/SUBSTANCEABUSE PROGRAM, SOME INFORMATION MAY BE OMITTED. This clinical summary was aggregated from multiple sources. Caution should be exercised in using it in the provision of clinical care. This summary normalizes information from multiple sources, and as a consequence, information in this document may materially change the coding, format and clinical context of patient data. In addition, data may be omitted in some cases. CLINICAL DECISIONS SHOULD BE BASED ON THE PRIMARY CLINICAL RECORDS. [facility]. provides no warranty or guarantee of the accuracy or completeness of information in this document.
== END | disposition home or self-care (01) ==
LOC: RAD 15:31
PROVIDERS: PCP Family Medicine; Referring Provider Internal Medicine Gastroenterology; Visit Provider Internal Medicine Gastroenterology
DX: R05.9 Cough, unspecified (principal)
CPT/HCPCS: 71046

== ENCOUNTER → 2024-04-30 | Outpatient (CLI) | payer OTHER, SELFPAY ==
[2024-04-30 14:12] LABS: Hepatitis B Surface Antigen Non-Reactive (Nonreactive)
== END | disposition home or self-care (01) ==
PROVIDERS: PCP Family Medicine; Referring Provider Nurse Practitioner Women's Health; Visit Provider Nurse Practitioner Women's Health
DX: Z78.9 Other specified health status (principal)
CPT/HCPCS: 36415; 87340

== ENCOUNTER → 2025-05-29 | Outpatient (CLI) | payer OTHER, SELFPAY | END | disposition home or self-care (01) | LOC: LABSPEC 17:06 | PROVIDERS: PCP Family Medicine; Referring Provider Nurse Practitioner Family; Visit Provider Nurse Practitioner Family | DX: Z12.4 Encounter for screening for malignant neoplasm of cervix (principal) | CPT/HCPCS: 87624; 88175; G0145 ==